=== PATIENT | female | born 1990 | race American Indian/Alaskan Native ===

== ENCOUNTER 2020-09-29 10:16 | Inpatient (IN) | payer OTHER ==
[~2020-09-29] VITALS: Ht 152.4 cm; Wt 54.4 kg
[2020-09-29] MEDS ORDERED: CHILDREN'S ASPI81 MG (12:36)
[2020-09-29] MEDS ORDERED: IRON236 MG (12:36)
[2020-09-29] MEDS ORDERED: PRENATAL CAPLE1 EAC1 (12:36)
[2020-09-29] MEDS ORDERED: LOVENOX40 MG/0.4 SUBCUTANEO (12:37)
== END 2020-10-01 09:57 | disposition home or self-care (01) | DRG 833 ==
LOC: NST 10:16 → LDR 11:25 → OB/GYN 09-30 10:09
PROVIDERS: ADMIT Obstetrics & Gynecology; ATTEND Obstetrics & Gynecology
PROC: 4A1HXFZ Monitoring of Products of Conception, Cardiac Rhythm, External Approach (ICD-10-PCS; principal; 2020-09-29)
PROC: BY4FZZZ Ultrasonography of Third Trimester, Single Fetus (ICD-10-PCS; 2020-09-30)
DX: O60.03 Preterm labor without delivery, third trimester (principal); Z3A.31 31 weeks gestation of pregnancy; Z20.822 Contact with and (suspected) exposure to COVID-19

== ENCOUNTER 2020-11-20 09:52 | Outpatient (CLI) | payer OTHER ==
[~2020-11-20 09:52] MED LIST: CHILDREN'S ASPI81 MG; IRON236 MG; LOVENOX40 MG/0.4 SUBCUTANEO; PRENATAL CAPLE1 EAC1
== END 2020-11-20 10:22 | disposition home or self-care (01) ==
LOC: NST 09:52
PROVIDERS: ATTEND Obstetrics & Gynecology
DX: Z34.83 Encounter for supervision of other normal pregnancy, third trimester (principal)

== ENCOUNTER 2020-11-20 22:05 | Outpatient (CLI) | payer OTHER | END 2020-11-20 22:44 | disposition home or self-care (01) | LOC: NST 22:05 | PROVIDERS: ATTEND Obstetrics & Gynecology | DX: Z34.83 Encounter for supervision of other normal pregnancy, third trimester (principal) ==

== ENCOUNTER 2020-11-24 12:00 | Inpatient (IN) | payer OTHER ==
[~2020-11-24] VITALS: Ht 152.4 cm; Wt 58.1 kg
[2020-11-25] MEDS ORDERED: NIFEDIPINE ER30 M1 (15:21)
[2020-11-25] MEDS ORDERED: FLONASE16 GM (15:22)
[2020-11-25] MEDS ORDERED: INTEGRA F CAPS1 EAC1 (15:22)
== END 2020-11-29 18:22 | disposition home or self-care (01) | DRG 788 ==
LOC: SURG-SUITE 11-25 05:27 → LDR 11-25 05:27 → OB/GYN 11-25 12:00 → SURG-SUITE 11-25 19:05
PROVIDERS: ADMIT Obstetrics & Gynecology; ATTEND Obstetrics & Gynecology
PROC: 4A1HXFZ Monitoring of Products of Conception, Cardiac Rhythm, External Approach (ICD-10-PCS; 2020-11-25)
PROC: 10D00Z1 Extraction of Products of Conception, Low, Open Approach (ICD-10-PCS; principal; 2020-11-25 18:00)
DX: O62.0 Primary inadequate contractions (principal); Z3A.39 39 weeks gestation of pregnancy; Z37.0 Single live birth; Z20.822 Contact with and (suspected) exposure to COVID-19

== ENCOUNTER 2020-11-30 11:12 | Outpatient (CLI) | payer OTHER ==
[~2020-11-30 11:12] MED LIST changes: +FLONASE16 GM; +INTEGRA F CAPS1 EAC1; +NIFEDIPINE ER30 M1
== END 2020-11-30 13:08 | disposition home or self-care (01) ==
LOC: LAB 11:12
DX: Z20.828 Contact with and (suspected) exposure to other viral communicable diseases (principal)

== ENCOUNTER 2023-03-30 01:14 | Emergency (ER) | payer OTHER ==
[~2023-03-30] VITALS: Ht 152.4 cm; Wt 49.0 kg
[2023-03-30] MEDS ORDERED: IRON236 MG (01:22)
[2023-03-30] MEDS ORDERED: LOVENOX40 MG/0.4 (01:22)
[2023-03-30] MEDS ORDERED: ECOTRIN81 MG (01:22)
[2023-03-30] MEDS ORDERED: VITAMIN B-650 M1 (01:23)
[2023-03-30 02:33] LABS: URINE APPEARANCE Clear; URINE BILIRRUBIN Negative (NEGATIVE); URINE BLOOD Negative; URINE COLOR Yellow; URINE GLUCOSE Negative (NEGATIVE); URINE LEUKOCYTE Moderate; URINE NITRATE Negative; URINE PROTEIN Negative (NEGATIVE); URINE UROBILINOGEN 0.2 E.U./dl
[2023-03-30 02:35] LABS: HEMATOCRIT 31.9 % (36.0-45.00); MEAN CELL VOLUME 96.1 fL (80.00-100.00); MEAN CORPUSCULAR HEMOGLOBIN 33.1 pg (27.00-32.0); MEAN CORPUSCULAR HGB CONC 34.5 g/dl (32.0-36.0); PLATELET COUNT 308 K/uL (150-450); RED BLOOD COUNT 3.32 M/uL (4.00-6.00); RED CELL DISTRIBUTION WIDTH 13.9 % (11.5-14.5)
[2023-03-30 02:36] LABS: URINE BACTERIA 355.3 uL (0.0-1933); URINE EPITHELIAL CELLS 61.8 uL (0.0-38.8); URINE RBC 2.4 uL (0.0-20.8); URINE WBC 63.5 uL (0.0-23.2)
[2023-03-30 03:13] LABS: ALBUMIN 3.1 gm/dL (3.4-5.0); BILIRUBIN TOTAL 0.23 mg/dL (0.3-1.2); CALCIUM 9.4 mg/dL (8.5-10.1); GFR 132.05; GLOBULINA 3.4 G/DL (2.4-3.5); POTASSIUM 4.06 mEq/L (3.5-5.1); TOTAL PROTEIN 6.5 gm/dL (6.4-8.2)
[2023-03-30 03:15] LABS: CREATININE SERUM 0.53 mg/dL (0.55-1.02)
[2023-03-30] MEDS ORDERED: MUPIROCIN1 G1 TOP ×3 (08:16→08:18)
[2023-03-30] MEDS ORDERED: ACETAMINOPHEN-1 EAC2 PO ×3 (08:16→08:18)
[2023-03-30] MEDS ORDERED: CLEOCIN HCL300 MG PO ×3 (08:16→08:18)
== END 2023-03-30 09:00 ==
LOC: ER 01:15
PROVIDERS: General Practice
DX: H05.011 Cellulitis of right orbit (principal); L02.01 Cutaneous abscess of face; Z33.1 Pregnant state, incidental; Z91.013 Allergy to seafood

== ENCOUNTER 2023-03-30 08:48 | Outpatient (CLI) | payer OTHER ==
[~2023-03-30 08:48] MED LIST changes: +ACETAMINOPHEN-1 EAC2 PO; +CLEOCIN HCL300 MG PO; +ECOTRIN81 MG; +LOVENOX40 MG/0.4; +MUPIROCIN1 G1 TOP; +VITAMIN B-650 M1
== END 2023-03-30 13:44 | disposition home or self-care (01) ==
LOC: LAB 08:48
PROVIDERS: ATTEND General Practice
DX: L02.01 Cutaneous abscess of face (principal)